=== PATIENT | male | born 2000 | race Caucasian/White ===

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

== ENCOUNTER 2018-04-05 21:15 | Emergency (ER) | payer SELFPAY | END 2018-04-05 22:57 | disposition home or self-care (01) | LOC: FTE 21:15 | DX: R10.13 Epigastric pain (principal) | CPT/HCPCS: 99283 ==

== ENCOUNTER 2018-06-10 07:05 | Emergency (ER) | payer SELFPAY ==
[2018-06-10] MEDS: ONDANSETRON (ODT) 4 MG TAB ODT (07:41)
[2018-06-10] MEDS: LIDOCAINE/MYLANTA 40 ML BTL PO (07:42)
[2018-06-10 07:50] LABS: ADD MAN DIFF? NO
[2018-06-10 07:59] LABS: BASOPHILS % 0.3 % (0.0-2.0); EOSINOPHILS # 0.1 10^3/ul (0.0-0.5); EOSINOPHILS % 1.5 % (0.0-7.0); HEMATOCRIT 42.8 % (42.0-52.0); HEMOGLOBIN 14.4 g/dl (14.0-18.0); LYMPHOCYTES # 2.1 10^3/ul (0.8-2.9); LYMPHOCYTES % 30.6 % (18.0-55.0); MEAN CORPUSCULAR HEMOGLOBIN 29.2 pg (29.0-33.0); MEAN CORPUSCULAR HGB CONC 33.6 g/dl (32.0-37.0); MEAN CORPUSCULAR VOLUME 86.8 fl (72.0-104.0); MEAN PLATELET VOLUME 10.7 fl (7.4-10.4); MONOCYTE # 0.6 10^3/ul (0.3-0.9); MONOCYTES % 8.8 % (0.0-13.0); NEUTROPHILS % 58.5 % (30.0-74.0); PLATELET COUNT 246 10^3/UL (140-415); RED BLOOD COUNT 4.93 10^6/ul (4.70-6.10); RED CELL DISTRIBUTION WIDTH 12.8 % (11.5-14.5)
[2018-06-10 07:59] LABS: WHITE BLOOD COUNT 6.7 10^3/ul (4.8-10.8)
[2018-06-10 08:16] LABS: ALANINE AMINOTRANSFERASE 12 IU/L (13-69); ALBUMIN 4.1 g/dl (3.3-4.9); ALBUMIN/GLOBULIN RATIO 1.13; ALKALINE PHOSPHATASE 58 IU/L (42-121); AMYLASE 69 U/L (11-123); ANION GAP 13 (8-16); ASPARTATE AMINO TRANSFERASE 23 IU/L (15-46); BILIRUBIN,INDIRECT 3.9 mg/dl (0-1.1); BILIRUBIN,TOTAL 3.9 mg/dl (0.2-1.3); BLOOD UREA NITROGEN 17 mg/dl (7-20); CALCIUM 9.8 mg/dl (8.4-10.2); CARBON DIOXIDE 31 mmol/L (21-31); CHLORIDE 103 mmol/L (97-110); CREATININE 0.83 mg/dl (0.61-1.24); GLUCOSE 92 mg/dl (70-220); LIPASE 68 U/L (23-300); POTASSIUM 3.6 mmol/L (3.5-5.1); SODIUM 143 mmol/L (135-144); TOTAL PROTEIN 7.7 g/dl (6.1-8.1)
[2018-06-10 08:53] LABS: ADD UMIC NO; UR ASCORBIC ACID NEGATIVE (NEGATIVE); UR BILIRUBIN (Dip) NEGATIVE (NEGATIVE); UR BLOOD (Dip) NEGATIVE (NEGATIVE); UR CLARITY SLIGHTLY CLOUDY (CLEAR); UR COLOR YELLOW (YELLOW); UR GLUCOSE (Dip) NEGATIVE (NEGATIVE); UR KETONES (Dip) TRACE mg/dL (NEGATIVE); UR LEUKOCYTE ESTERASE (Dip) NEGATIVE Leu/ul (NEGATIVE); UR MUCUS MANY /HPF (NONE SEEN); UR NITRITE (Dip) NEGATIVE (NEGATIVE); UR RBC 0 /HPF (0-5); UR SPECIFIC GRAVITY (Dip) 1.026 (1.003-1.030); UR TOTAL PROTEIN (Dip) NEGATIVE (NEGATIVE); UR UROBILINOGEN (Dip) 1+ mg/dL (NEGATIVE); UR WBC 4 /HPF (0-5)
== END 2018-06-10 09:09 | disposition home or self-care (01) ==
LOC: FTE 07:05
DX: R10.13 Epigastric pain (principal)
CPT/HCPCS: 36415; 74018; 76705; 80053; 81001; 81003; 82150; 83690; 85025; 99285-25

== ENCOUNTER 2018-06-17 08:42 | Emergency (ER) | payer SELFPAY ==
[2018-06-17] MEDS: ACETAMINOPHEN 500 MG TAB PO (09:22)
[2018-06-17] MEDS: BELLADONNA/PHENOBARBITAL TAB PO (09:22)
[2018-06-17] MEDS: LIDOCAINE/MYLANTA 40 ML BTL PO (09:22)
== END 2018-06-17 09:26 | disposition home or self-care (01) ==
LOC: FTE 08:42
DX: R10.9 Unspecified abdominal pain (principal)
CPT/HCPCS: 99283

== ENCOUNTER 2018-06-18 08:48 | Emergency (ER) | payer SELFPAY | END 2018-06-18 10:45 | disposition home or self-care (01) | LOC: FTE 08:48 | DX: R00.2 Palpitations (principal); R06.02 Shortness of breath; R05 Cough | CPT/HCPCS: 71045; 93005; 99284-25 ==

== ENCOUNTER 2019-02-23 23:32 | Emergency (ER) | payer SELFPAY ==
[2019-02-24 04:43] LABS: ADD UMIC YES; UR ASCORBIC ACID 40 mg/dL (NEGATIVE); UR BILIRUBIN (Dip) NEGATIVE (NEGATIVE); UR BLOOD (Dip) NEGATIVE (NEGATIVE); UR CALCIUM OXALATE CRYSTAL FEW /HPF (NONE SEEN); UR CLARITY CLEAR (CLEAR); UR COLOR AMBER (YELLOW); UR GLUCOSE (Dip) NEGATIVE (NEGATIVE); UR KETONES (Dip) 1+ mg/dL (NEGATIVE); UR LEUKOCYTE ESTERASE (Dip) NEGATIVE Leu/ul (NEGATIVE); UR MUCUS MANY /HPF (NONE SEEN); UR NITRITE (Dip) NEGATIVE (NEGATIVE); UR RBC 1 /HPF (0-5); UR SPECIFIC GRAVITY (Dip) 1.032 (1.003-1.030); UR TOTAL PROTEIN (Dip) 1+ mg/dl (NEGATIVE); UR UROBILINOGEN (Dip) 1+ mg/dL (NEGATIVE); UR WBC 1 /HPF (0-5)
== END 2019-02-24 05:19 | disposition home or self-care (01) ==
LOC: FTE 23:32
DX: R30.0 Dysuria (principal)
CPT/HCPCS: 81001; 99283